=== PATIENT | female | born 1985 | race Two or more races ===

== ENCOUNTER 2017-01-17 04:50 | Emergency (ER) | payer OTHER ==
[~2017-01-17] VITALS: Ht 152.4 cm; Wt 74.0 kg
[2017-01-17 04:53] VITALS: Ht 152.4 cm; Wt 74.0 kg
[2017-01-17] MEDS ORDERED: SOD CHLORIDE 0.9% 1,000 ML IV STA (05:10)
[2017-01-17] MEDS ORDERED: ONDANSETRON 4 MG INJ IV STA (05:10)
[2017-01-17] MEDS ORDERED: morphine 4 MG/ML VIAL IV STA (05:10)
[2017-01-17] MEDS ORDERED: IBUP200C11 PO (05:26)
[2017-01-17] MEDS ORDERED: L.AC1CAP6 PO (05:26)
[2017-01-17] MEDS ORDERED: MULTI PO (05:26)
[2017-01-17 05:36] LABS: ADD SCAN DIFF NO
--- NOTE | 2017-01-17 05:44 | RADRPT ---
PROCEDURE: CT Abdomen and pelvis without contrast. CLINICAL INDICATION: Abdominal pain. TECHNIQUE: CT scan of the abdomen and pelvis was performed on a multi-detector high-resolution CT scanner. Contiguous axial images were obtained from the lung bases to the ischial tuberosities wit hout intravenous contrast. Coronal and sagittal reformatted images were also obtained. Images were reviewed on the PACS workstation. One or more of the following dose reduction techniques were used: - Automated exposure control. - Adjustment of the mA and/or kV according to patient size. - Use of iterative reconstruction technique. Exam CTD/vol = 14.08 mGy. Total exam DLP = 805.25 mGy-cm. COMPARISON: None. FINDINGS: Evaluation of the lung bases demonstrates no pleural or parenchymal disease. Abdomen: The liver is normal in size. There is no focal mass or dilatation of the biliary tree. T he gallbladder is not distended. The spleen, pancreas and bilateral adrenal glands are within jey l limits. Bilateral kidneys are normal in size with no contour deforming mass identified. There is no radiopaque renal or ureteral calculus identified. There is no hydronephrosis or hydroureter. T here is no retroperitoneal adenopathy. The abdominal aorta is of normal caliber. There is no abnormal bowel wall thickening or distension. There is no bowel obstruction or free air . A normal appendix is identified. There is no diverticulosis or diverticulitis. There is no asci rekha. Pelvis: The bladder is unremarkable. The uterus and adnexa are within normal limits. There is no significant pelvic adenopathy or free fluid. Evaluation of the osseous structures demonstrates no suspicious lytic or blastic lesion. IMPRESSION: No acute abnormality identified within the abdomen and pelvis. .David Kebede MD, MD Date Time Electronically viewed and signed by .David Kebede MD, MD on 01/17/2017 05:43 .T/
[2017-01-17 05:48] LABS: ADD UMIC YES; URINE BILIRUBIN (Dip) NEGATIVE (NEGATIVE); URINE BLOOD (Dip) TRACE (NEGATIVE); URINE COLOR LT. YELLOW (YELLOW); URINE GLUCOSE (Dip) NEGATIVE (NEGATIVE); URINE KETONES (Dip) NEGATIVE (NEGATIVE); URINE LEUKOCYTE ESTERASE (Dip) NEGATIVE (NEGATIVE); URINE NITRITE (Dip) NEGATIVE (NEGATIVE); URINE TOTAL PROTEIN (Dip) NEGATIVE (NEGATIVE); URINE UROBILINOGEN (Dip) 0.2 E.U./dL (0.1-1.0)
[2017-01-17 05:50] LABS: BASOPHILS % 0.4 % (0.0-2.0); EOSINOPHILS # 0.1 10^3/ul (0.0-0.5); EOSINOPHILS % 1.2 % (0.0-7.0); HEMATOCRIT 39.1 % (37.0-47.0); HEMOGLOBIN 13.2 g/dl (12.0-16.0); LYMPHOCYTES # 2.2 10^3/ul (0.8-2.9); LYMPHOCYTES % 27.9 % (15.0-51.0); MEAN CORPUSCULAR HEMOGLOBIN 29.2 pg (29.0-33.0); MEAN CORPUSCULAR HGB CONC 33.8 g/dl (32.0-37.0); MEAN CORPUSCULAR VOLUME 86.5 fl (82.0-101.0); MEAN PLATELET VOLUME 10.4 fl (7.4-10.4); MONOCYTE # 0.4 10^3/ul (0.3-0.9); MONOCYTES % 5.6 % (0.0-11.0); NEUTROPHIL # 5.1 10^3/ul (1.6-7.5); NEUTROPHILS % 64.8 % (39.0-77.0); PLATELET COUNT 266 10^3/UL (140-415); RED BLOOD COUNT 4.52 10^6/ul (4.20-5.40); RED CELL DISTRIBUTION WIDTH 12.8 % (11.5-14.5); WHITE BLOOD COUNT 7.8 10^3/ul (4.8-10.8)
[2017-01-17 05:56] LABS: SQUAMOUS EPITHELIAL CELL,UR FEW; URINE RBCS 0-2 /HPF (0)
[2017-01-17 05:57] LABS: BACTERIA,URINE OCCASIONAL
[2017-01-17 05:58] LABS: ALBUMIN 4.5 g/dl (3.3-4.9)
[2017-01-17 05:59] LABS: POTASSIUM 3.6 mmol/L (3.5-5.1)
[2017-01-17 06:00] LABS: CREATININE 0.63 mg/dl (0.44-1.00)
[2017-01-17 06:01] LABS: ALBUMIN/GLOBULIN RATIO 1.32; BILIRUBIN,INDIRECT 0.4 mg/dl (0-1.1); BILIRUBIN,TOTAL 0.4 mg/dl (0.2-1.3); CALCIUM 9.4 mg/dl (8.4-10.2); TOTAL PROTEIN 7.9 g/dl (6.1-8.1)
[2017-01-17 06:16] VITALS: BP 111/62; PULSE 65; RESP 18; TEMP 98
[2017-01-17] MEDS ORDERED: METH500T PO (06:16)
[2017-01-17] MEDS ORDERED: HYDR-906 PO (06:16)
[2017-01-17] MEDS ORDERED: NAPR-688 PO (06:16)
--- NOTE | 2017-01-17 06:21 | ERD ---
ER Documentation Chief Complaint Date/Time DATE: 01/17/17 TIME: 06:19 Chief Complaint Right side AP with Nausea x 2 days HPI 32-year-old female presented with nausea on and off for 2 days as well as lower back pain worse on the right than the left. She does not actually having anterior abdominal pain. She says she has never had a UTI denies dysuria. Also denies fever and chills. She has not tried taking anything for the pain yet. ROS All systems reviewed and are negative except as per history of present illness. Medications Home Meds Active Scripts Hydrocodone/Acetaminophen ([place] 5-325 Tablet) 1 Each Tablet, 1 EACH PO Q6, #14 TAB Prov:SIMÓN HORNE DO 01/17/17 Methocarbamol* (Robaxin*) 500 Mg Tab, 500 MG PO Q8, #20 TAB Prov:SIMÓN HORNE DO 01/17/17 Naproxen* (Naproxen*) 500 Mg Tablet, 500 MG PO BID Y for PAIN, #20 TAB Prov:SIMÓN HORNE DO 01/17/17 Reported Medications L.acidoph,Paracasei, B.lactis (Probiotic) 1 Each Capsule, 1 EACH PO, CAP 01/17/17 Multivitamins* (Theragran*) 1 Tab Tab, 1 TAB PO DAILY, TAB 01/17/17 Ibuprofen* (Advil*) 200 Mg Capsule, 400 MG PO Q6H Y for PAIN, CAP 01/17/17 Allergies Allergies: Coded Allergies: No Known Allergy (Unverified , 01/17/17) PMhx/Soc History of Surgery: No Anesthesia Reaction: No Hx Neurological Disorder: No Hx Respiratory Disorders: No Hx Cardiac Disorders: No Hx Psychiatric Problems: No Hx Miscellaneous Medical Probl: No Hx Alcohol Use: No Hx Substance Use: No Hx Tobacco Use: No Smoking Status: Never smoker Physical Exam Vitals Vital Signs Date Time Temp Pulse Resp B/P Pulse Ox O2 Delivery O2 Flow Rate FiO2 01/17/17 04:53 97.3 80 20 121/60 100 Physical Exam Const: [] No distress Head: Atraumatic Eyes: Normal Conjunctiva ENT: Normal External Ears, Nose and Mouth. Neck: Full range of motion..~ No meningismus. Resp: Clear to auscultation bilaterally Cardio: Regular rate and rhythm, no murmurs Abd: Soft, non tender, non distended. Normal bowel sounds Skin: No petechiae or rashes Back: No midline tenderness, right paraspinal muscle tenderness and spasm Ext: No cyanosis, or edema Neur: Awake and alert and oriented 3, no focal deficits Psych: Normal Mood and Affect Result Diagram: 01/17/1715 01/17/17 0515 Results 24 hrs Laboratory Tests Test 01/17/17 05:15 White Blood Count 7.810^3/ul Red Blood Count 4.5210^6/ul Hemoglobin 13.2g/dl Hematocrit 39.1% Mean Corpuscular Volume 86.5fl Mean Corpuscular Hemoglobin 29.2pg Mean Corpuscular Hemoglobin Concent 33.8g/dl Red Cell Distribution Width 12.8% Platelet Count 07164^3/UL Mean Platelet Volume 10.4fl Neutrophils % 64.8% Lymphocytes % 27.9% Monocytes % 5.6% Eosinophils % 1.2% Basophils % 0.4% Nucleated Red Blood Cells % 0.0/100WBC Neutrophils # 5.110^3/ul Lymphocytes # 2.210^3/ul Monocytes # 0.410^3/ul Eosinophils # 0.110^3/ul Basophils # 0.010^3/ul Nucleated Red Blood Cells # 0.010^3/ul Urine Color LT. YELLOW Urine Clarity CLEAR Urine pH 5.5 Urine Specific [place] 1.020 Urine Ketones NEGATIVE Urine Nitrite NEGATIVE Urine Bilirubin NEGATIVE Urine Urobilinogen 0.2 E.U./dL Urine Leukocyte Esterase NEGATIVE Urine Microscopic RBC 0-2/HPF Urine Microscopic WBC 0-2/HPF Urine Squamous Epithelial Cells FEW Urine Bacteria OCCASIONAL Urine Hemoglobin TRACE Urine Glucose NEGATIVE% Urine Total Protein NEGATIVE Sodium Level 143mmol/L Potassium Level 3.6mmol/L Chloride Level 104mmol/L Carbon Dioxide Level 26mmol/L Anion Gap 17 Blood Urea Nitrogen 13mg/dl Creatinine 0.63mg/dl Glucose Level 109mg/dl Calcium Level 9.4mg/dl Total Bilirubin 0.4mg/dl Direct Bilirubin 0.00mg/dl Indirect Bilirubin 0.4mg/dl Aspartate Amino Transf (AST/SGOT) 24IU/L Alanine Aminotransferase (ALT/SGPT) 38IU/L Alkaline Phosphatase 65IU/L Total Protein 7.9g/dl Albumin 4.5g/dl Globulin 3.40g/dl Albumin/Globulin Ratio 1.32 Lipase 87U/L Current Medications Medications (Trade) Dose Ordered Sig/Anshu Route PRN Reason Start Time Stop Time Status Last Admin Dose Admin Sodium Chloride (NS) 1,000 ml @ 1,000 mls/hr Q1H STAT IV 01/17/17 05:10 01/17/17 06:09 DC 01/17/17 05:23 Morphine Sulfate (morphine) 4 mg ONCE STAT IV 01/17/17 05:10 01/17/17 05:11 DC 01/17/17 05:23 Ondansetron HCl (Zofran Inj) 4 mg ONCE STAT IV 01/17/17 05:10 01/17/17 05:11 DC 01/17/17 05:22 Procedures/MDM 31-year-old female with back pain thinking that she may feel it sometimes in her abdomen having a negative workup. Differential diagnosis included kidney stone, pyelonephritis. However the patient has no signs of infection whatsoever. She was given 4 mg of morphine 4 mg of Zofran was completely symptomatic in the emergency room. Much better and I believe her pain may be musculoskeletal. I am going to discharge with primary care follow-up in 2-3 days as well as naproxen, [place], Robaxin. CT abdomen pelvis interpretation: I see no acute process, no obstruction, no free air, no abnormal fat stranding, no bony abnormalities. Departure Diagnosis: Primary Impression: Back muscle spasm Additional Impression: Abdominal pain Condition: Stable SIMÓN HORNE DO January 17, 2017 06:21
== END 2017-01-17 06:25 | disposition home or self-care (01) ==
LOC: E/R 04:50
DX: M62.830 Muscle spasm of back (principal); R11.0 Nausea
CPT/HCPCS: 36415; 74176; 80053; 81001; 83690; 85025; 96374; 96375; J2270; J2405; J7030; Z7502; 81003